=== PATIENT | male | born 1935 | race Hispanic/Latino ===

== ENCOUNTER 2017-02-27 18:59 | Emergency (ER) | payer MEDICARE, MEDICAID | END 2017-02-27 22:11 | disposition home or self-care (01) | LOC: ERS 18:59 | DX: T16.2XXA Foreign body in left ear, initial encounter (principal); I10 Essential (primary) hypertension; G20 Parkinson's disease; Z79.899 Other long term (current) drug therapy | CPT/HCPCS: 69200 ==